=== PATIENT | female | born 1960 | race Caucasian/White ===

== ENCOUNTER 2019-11-16 | Emergency (ER) | payer MEDICARE ==
[~2019-11-16] MED LIST: CELEXA10 MG OR; CEPHALEXIN500 MG OR; LORTAB 5 OR; WELLBUTRIN150 M1 OR; XANAX1 MG OR
[2019-11-16 15:09] LABS: HEMATOCRIT 33.3 % (37.0-47.0); HEMOGLOBIN 10.8 g/dl (12.0-16.0); IMMATURE GRANULOCYTES 0.4 % (0.0-5.0); MEAN CELL VOLUME 87.9 fL CALC (80.0-100.0); MEAN CORPUSCULAR HGB 28.5 pG CALC (26.0-32.0); MEAN CORPUSCULAR HGB CONC 32.4 g/dL CAL (32.0-36.0); NEUT# 2.43 thou/uL (2.00-7.15); RED BLOOD COUNT 3.79 mill/uL (4.20-5.60); RED CELL DISTRI WIDTH 20.6 % (11.5-15.5)
[2019-11-16 15:21] LABS: ALBUMIN 3.8 g/dL (3.2-5.0); ALKALINE PHOSPHATASE 112 u/l (38-126); ANION GAP 12 (6-22 (CALC)); BILIRUBIN, TOTAL 0.4 mg/dL (0.0-1.4); BUN 14 mg/dL (8-23); BUN/CREATININE RATIO 17 (12-20 (CALC)); CARBON DIOXIDE 25 mmol/l (22-30); CHLORIDE 107 mmol/l (95-108); CREATININE 0.8 mg/dL (0.5-1.0); GFR > 60 ML/MIN (>=60 (CALC)); GFR FOR AFR.AMER. > 60 ML/MIN (>=60 (CALC)); MAGNESIUM 1.1 mg/dL (1.6-2.3); POTASSIUM 4.5 mmol/l (3.5-5.1); SGOT/AST 22 u/l (9-36); SODIUM 139 mmol/l (137-146)
[2019-11-16] MEDS ORDERED: ZOLOFT50 MG PO (17:08)
[2019-11-16] MEDS ORDERED: OXYCODONE30 MG PO (17:11)
[2019-11-16] MEDS ORDERED: MORPHINE SUL15 MG PO (17:11)
[2019-11-16] MEDS ORDERED: VALIUM2 MG PO (17:13)
== END 2019-11-16 18:50 | disposition home or self-care (01) ==
DX: R53.1 Weakness (principal); C18.9 Malignant neoplasm of colon, unspecified; M54.9 Dorsalgia, unspecified; G89.29 Other chronic pain; F17.200 Nicotine dependence, unspecified, uncomplicated; Z86.73 Personal history of transient ischemic attack (TIA), and cerebral infarction without residual deficits
CPT/HCPCS: J3475